=== PATIENT | female | born 1995 | race Caucasian/White ===

== ENCOUNTER 2016-08-25 15:18 | Emergency (ER) | payer MEDICAID, OTHER ==
[2016-08-25 15:33] VITALS: TEMP 97.8
[2016-08-25] MEDS ORDERED: cefTRIAXone SODIUM 1 GM VIAL IM ONE (16:17)
[2016-08-25] MEDS ORDERED: CIPROFLOXACIN 500 MG TAB PO ONE (16:17)
[2016-08-25] MEDS ORDERED: LIDOCAINE 1% 10 ML VIAL INJ ONE (16:20)
--- NOTE | 2016-08-25 16:20 | ED.PDOC ---
History of Present Illness - General Chief Complaint: Problem Stated Complaint: low back discomfort, burning on urination Time Seen by Provider: 08/25/16 15:38 Source: patient Exam Limitations: no limitations - History of Present Illness Initial Comments: the patient is a 21-year-old female presenting to the emergency room secondary to symptoms of urinary frequency and mild dysuria for the last 2 weeks. Over the last 24 hours she started having some mild suprapubic cramping as well as some mild right flank pain. No definite fevers. No nausea or vomiting. No diarrhea. No syncope or near syncope. Activity has been normal otherwise. No vaginal discharge. No pain with ambulation. Timing/Duration: 1 week Severity: moderate Improving Factors: nothing Worsening Factors: nothing Allergies/Adverse Reactions: Allergies NO KNOWN ALLERGY Allergy (Verified 08/25/16 15:29) Home Medications: Ambulatory Orders Ciprofloxacin [Cipro] 250 mg PO BID #14 tab 08/25/16 Review of Systems - Review of Systems Constitutional: States: no symptoms reported EENTM: States: no symptoms reported Respiratory: States: no symptoms reported Cardiology: States: no symptoms reported Gastrointestinal/Abdominal: States: see HPI Genitourinary: States: see HPI Musculoskeletal: States: see HPI Skin: States: no symptoms reported Neurological: States: no symptoms reported All other Systems: No Change from Baseline Past Medical History (General) - Patient Medical History Hx Seizures: No Hx Stroke: No Hx Dementia: No Hx Asthma: No Hx of COPD: No Hx Cardiac Disorders: No Hx Congestive Heart Failure: No Hx Pacemaker: No Hx Hypertension: No Hx Thyroid Disease: No Hx Diabetes: No Hx Gastroesophageal Reflux: No Hx Renal Disease: No Hx Cancer: No Hx of HIV: No Hx Hepatitis C: No Hx MRSA: No - Vaccination History Hx Tetanus, Diphtheria Vaccination: No Hx Influenza Vaccination: No Hx Pneumococcal Vaccination: No - Social History Hx Tobacco Use: No Hx Chewing Tobacco Use: No Hx Alcohol Use: No Hx Substance Use: No Hx Substance Use Treatment: No Hx Depression: No Hx Physical Abuse: No Hx Emotional Abuse: No Hx Suspected Abuse: No - Female History Patient is a Female of Child Bearing Age (10 -59 yrs old): Yes Hx Last Menstrual Period: 06/12/14 Patient : No Expected Date of Delivery:: 11/01/16 Hx Gestational Age: 12 Family Medical History - Family History Mother Family History: No Known Name: Radha Age (years): 36 Living Status: Still Living Hx Family Asthma: No Hx Family Congestive Heart Failure: No Hx Family Hypertension: No Hx Family Stroke: No Hx Cardiac Disease: No Hx Family Diabetes: No Hx Family Cancer: No Physical Exam - Physical Exam General Appearance: Alert, Comfortable, No apparent distress Eye Exam: bilateral normal Ears, Nose, Throat: hearing grossly normal, normal ENT inspection, normal pharynx Neck: non-tender, full range of motion, supple Respiratory: chest non-tender, lungs clear, normal breath sounds, no respiratory distress, no accessory muscle use Cardiovascular/Chest: normal peripheral pulses, regular rate, rhythm, no edema Peripheral Pulses: radial,right: 2+, radial,left: 2+, dorsalis pedis,right: 2+, dorsalis pedis,left: 2+ Gastrointestinal/Abdominal: non tender, soft Rectal Exam: deferred Back Exam: normal inspection, CVA tenderness (R) - mild Extremity: normal range of motion, non-tender, normal inspection, no pedal edema , no calf tenderness, normal capillary refill Neurologic: no motor/sensory deficits, alert, normal mood/affect, oriented x 3 Skin Exam: normal color Comments: Vital Signs - 24 hr 08/25/16 15:31 Temperature 97.8 F Pulse Rate [ 80 Left Radial] Respiratory 18 Rate Blood Pressure 146/99 [Left Arm] O2 Sat by Pulse 97 Oximetry Progress - Progress Progress: 08/25/16 16:20 the patient is a 21-year-old female presenting with cystitis and likely early right pyelonephritis. The patient is given a dose of Rocephin here today and a dose of ciprofloxacin. She'll be placed on ciprofloxacin 250 twice a day for 7 days. She needs to increase her fluid intake. ER warnings are given. She needs to follow-up with her primary care doctor in 5 days for repeat urinalysis. - Results/Orders Results/Orders: Laboratory Tests 08/25/16 15:38 Urine Color Yellow Urine Appearance Cloudy Urine pH 5.5 Ur Specific [place] 1.015 Urine Protein 30 Urine Glucose (UA) Negative Urine Ketones Negative Urine Blood Moderate H Urine Nitrite Negative Urine Bilirubin Negative Urine Urobilinogen 0.2 Ur Leukocyte Esterase Small H Urine RBC 10-20 H Urine WBC 10-20 H Ur Epithelial Cells 1-3 Urine Bacteria 2+ H Departure - Departure Clinical Impression: Pyelonephritis Disposition: Discharge to Home or Self Care Condition: Fair Departure Forms: ED Discharge - Pt. Copy, Patient Portal Self Enrollment Instructions: DI for Urinary Tract Infection (UTI) Diet: regular diet Activity: increase activity as tolerated Prescriptions: Ciprofloxacin [Cipro] 250 mg PO BID #14 tab Home Medications: Ambulatory Orders Ciprofloxacin [Cipro] 250 mg PO BID #14 tab 08/25/16 Additional Instructions: the patient is a 21-year-old female presenting with cystitis and likely early right pyelonephritis. The patient is given a dose of Rocephin here today and a dose of ciprofloxacin. She'll be placed on ciprofloxacin 250 twice a day for 7 days. She needs to increase her fluid intake. ER warnings are given. She needs to follow-up with her primary care doctor in 5 days for repeat urinalysis.
[2016-08-25 16:40] VITALS: BP 109/70; O2SAT 100
== END 2016-08-25 17:00 | disposition home or self-care (01) ==
LOC: ER 15:18
DX: N12 Tubulo-interstitial nephritis, not specified as acute or chronic (principal)
CPT/HCPCS: 81001; 87086; 87088; 87186; J0696

== ENCOUNTER 2016-09-04 20:43 | Emergency (ER) | payer MEDICAID, OTHER ==
[2016-09-04 21:00] VITALS: O2SAT 99
--- NOTE | 2016-09-04 21:43 | ED.PDOC ---
History of Present Illness - General Chief Complaint: Behavioral / Psych Stated Complaint: lightheaded, pressure in chest Time Seen by Provider: 09/04/16 21:38 Source: patient - History of Present Illness Allergies/Adverse Reactions: Allergies NO KNOWN ALLERGY Allergy (Verified 08/25/16 15:29) Home Medications: Ambulatory Orders Ciprofloxacin [Cipro] 250 mg PO BID #14 tab 08/25/16 Past Medical History (General) - Patient Medical History Hx Seizures: No Hx Stroke: No Hx Dementia: No Hx Asthma: No Hx of COPD: No Hx Cardiac Disorders: No Hx Congestive Heart Failure: No Hx Pacemaker: No Hx Hypertension: No Hx Thyroid Disease: No Hx Diabetes: No Hx Gastroesophageal Reflux: No Hx Renal Disease: No Hx Cancer: No Hx of HIV: No Hx Hepatitis C: No Hx MRSA: No Surgical History: no surgical history - Vaccination History Hx Tetanus, Diphtheria Vaccination: No Hx Influenza Vaccination: No Hx Pneumococcal Vaccination: No Immunizations Up to Date: No - Social History Hx Tobacco Use: No Hx Chewing Tobacco Use: No Hx Alcohol Use: Yes - occ Hx Substance Use: No Hx Substance Use Treatment: No Hx Depression: No Hx Physical Abuse: No Hx Emotional Abuse: No Hx Suspected Abuse: No - Female History Hx Last Menstrual Period: 09/03/16 Patient : No Expected Date of Delivery:: 11/01/16 Hx Gestational Age: 12 Family Medical History - Family History Mother Family History: No Known Name: Radha Age (years): 36 Living Status: Still Living Hx Family Asthma: No Hx Family Congestive Heart Failure: No Hx Family Hypertension: No Hx Family Stroke: No Hx Cardiac Disease: No Hx Family Diabetes: No Hx Family Cancer: No Departure - Departure Disposition: Discharge to Home or Self Care Condition: Fair Departure Forms: ED Discharge - Pt. Copy, Patient Portal Self Enrollment Home Medications: Ambulatory Orders Ciprofloxacin [Cipro] 250 mg PO BID #14 tab 08/25/16
--- NOTE | 2016-09-04 21:47 | ED.PDOC ---
History of Present Illness - General Chief Complaint: Behavioral / Psych Stated Complaint: lightheaded, pressure in chest Time Seen by Provider: 09/04/16 21:38 Source: patient, RN notes reviewed, Vital Signs reviewed Exam Limitations: no limitations - History of Present Illness Initial Comments: Patient stated that she started having sharp chest pains 2 days ago then today felt dizzy at work and nauseated.No sob no diaphoresis,pain non radiating Timing/Duration: other - 2 days ago Improving Factors: nothing Worsening Factors: nothing Associated Symptoms: denies symptoms Allergies/Adverse Reactions: Allergies NO KNOWN ALLERGY Allergy (Verified 08/25/16 15:29) Home Medications: Ambulatory Orders Ciprofloxacin [Cipro] 250 mg PO BID #14 tab 08/25/16 Review of Systems - Review of Systems Constitutional: States: no symptoms reported EENTM: States: no symptoms reported Respiratory: States: no symptoms reported Cardiology: States: see HPI Gastrointestinal/Abdominal: States: no symptoms reported Genitourinary: States: no symptoms reported Musculoskeletal: States: no symptoms reported Skin: States: no symptoms reported Neurological: States: no symptoms reported Endocrine: States: no symptoms reported Hematologic/Lymphatic: States: no symptoms reported Past Medical History (General) - Patient Medical History Hx Seizures: No Hx Stroke: No Hx Dementia: No Hx Asthma: No Hx of COPD: No Hx Cardiac Disorders: No Hx Congestive Heart Failure: No Hx Pacemaker: No Hx Hypertension: No Hx Thyroid Disease: No Hx Diabetes: No Hx Gastroesophageal Reflux: No Hx Renal Disease: No Hx Cancer: No Hx of HIV: No Hx Hepatitis C: No Hx MRSA: No Surgical History: no surgical history - Vaccination History Hx Tetanus, Diphtheria Vaccination: No Hx Influenza Vaccination: No Hx Pneumococcal Vaccination: No Immunizations Up to Date: No - Social History Hx Tobacco Use: No Hx Chewing Tobacco Use: No Hx Alcohol Use: Yes - occ Hx Substance Use: No Hx Substance Use Treatment: No Hx Depression: No Hx Physical Abuse: No Hx Emotional Abuse: No Hx Suspected Abuse: No - Activities of Daily Living Patient Lives Alone: No - family - Female History Hx Last Menstrual Period: 09/03/16 Patient : No Expected Date of Delivery:: 11/01/16 Hx Gestational Age: 12 Family Medical History - Family History Mother Family History: No Known Name: Radha Age (years): 36 Living Status: Still Living Hx Family Asthma: No Hx Family Congestive Heart Failure: No Hx Family Hypertension: No Hx Family Stroke: No Hx Cardiac Disease: No Hx Family Diabetes: No Hx Family Cancer: No Physical Exam - Physical Exam General Appearance: Alert, Anxious, Comfortable, No apparent distress, Other Eye Exam: bilateral normal Ears, Nose, Throat: hearing grossly normal, normal ENT inspection, normal pharynx Neck: non-tender, full range of motion, supple Respiratory: chest non-tender, lungs clear, normal breath sounds, no respiratory distress Cardiovascular/Chest: normal peripheral pulses, regular rate, rhythm, no edema, no gallop, no JVD, no murmur Peripheral Pulses: radial,right: 2+, radial,left: 2+ Gastrointestinal/Abdominal: normal bowel sounds, non tender, soft, no organomegaly Back Exam: normal inspection, no CVA tenderness, no vertebral tenderness Extremity: normal range of motion, non-tender, normal inspection Neurologic: no motor/sensory deficits, alert, normal mood/affect Skin Exam: normal color, warm/dry Progress - Results/Orders Results/Orders: 09/04/16 21:15 EKG STAT Laboratory Results WBC 5.8 K/mm3 (4.8-10.8) 09/04/16 21:20 RBC 4.63 M/mm3 (4.20-5.40) 09/04/16 21:20 Hgb 12.1 gm/dL (12.0-16.0) 09/04/16 21:20 Hct 36.6 % (36.0-47.0) 09/04/16 21:20 MCV 79.2 fl (81.0-99.0) L 09/04/16 21:20 MCH 26.2 pg (27.0-31.0) L 09/04/16 21:20 MCHC 33.1 g/dL (33.0-37.0) 09/04/16 21:20 RDW 15.2 % (11.5-14.5) H 09/04/16 21:20 Plt Count 223 K/mm3 (130-400) 09/04/16 21:20 MPV 7.6 fl (7.40-10.4) 09/04/16 21:20 Absolute Neuts (auto) 2.80 K/uL (1.8-6.8) 09/04/16 21:20 Absolute Lymphs (auto) 2.30 K/uL (1.0-3.4) 09/04/16 21:20 Absolute Monos (auto) 0.60 K/uL (0.2-0.8) 09/04/16 21:20 Absolute Eos (auto) 0.10 K/uL (0.0-0.4) 09/04/16 21:20 Absolute Basos (auto) 0.00 K/uL (0.0-0.1) 09/04/16 21:20 Neutrophils % 47.9 % (42.0-78.0) 09/04/16 21:20 Lymphocytes % 39.4 % (20.0-50.0) 09/04/16 21:20 Monocytes % 10.8 % (2.0-9.0) H 09/04/16 21:20 Eosinophils % 1.3 % (1.0-5.0) 09/04/16 21:20 Basophils % 0.6 % (0.0-2.0) 09/04/16 21:20 PT 11.8 SECONDS (9.4-12.5) 09/04/16 21:30 INR 1.040 09/04/16 21:30 PTT (SP) 38.3 SECONDS (25.1-36.5) H 09/04/16 21:30 D-Dimer, Quantitative < 200 ng/mL (0-230) 09/04/16 21:43 Sodium 138 mmol/L (135-145) 09/04/16 21:20 Potassium 3.6 mmol/L (3.6-5.0) 09/04/16 21:20 Chloride 108 mmol/L (101-111) 09/04/16 21:20 Carbon Dioxide 26 mmol/L (21-31) 09/04/16 21:20 Anion Gap 7.6 (12-18) L 09/04/16 21:20 BUN 9 mg/dL (7-18) 09/04/16 21:20 Creatinine 0.59 mg/dL (0.6-1.3) L 09/04/16 21:20 BUN/Creatinine Ratio 15.3 (10-20) 09/04/16 21:20 Random Glucose 95 mg/dL (70-105) 09/04/16 21:20 Serum Osmolality 274.2 mOsm/L (275-295) L 09/04/16 21:20 Calcium 8.9 mg/dL (8.4-10.2) 09/04/16 21:20 Magnesium 1.9 mg/dL (1.8-2.5) 09/04/16 21:30 Total Bilirubin 0.4 mg/dL (0.2-1.0) 09/04/16 21:20 AST 15 IU/L (10-42) 09/04/16 21:20 ALT 13 IU/L (10-60) 09/04/16 21:20 Alkaline Phosphatase 42 IU/L (75-270) L 09/04/16 21:20 Creatine Kinase 62 IU/L (26-140) 09/04/16 21:30 CK-MB (CK-2) 0.8 ng/mL (0.0-4.4) 09/04/16 21:30 CK-MB (CK-2) % Not Reportable 09/04/16 21: Troponin I < 0.02 ng/mL (0.01-0.05) 09/04/16 21:30 Serum Total Protein 7.0 gm/dL (6.4-8.2) 09/04/16 21:20 Albumin 4.2 g/dl (3.2-5.5) 09/04/16 21: Globulin 2.8 gm/dL (2.3-3.5) 09/04/16 21:20 Albumin/Globulin Ratio 1.5 (1.1-1.9) 09/04/16 21:20 Urine Color Yellow (Yellow) 09/04/16 21:28 Urine Appearance Clear (Clear) 09/04/16 21:28 Urine pH 7.5 (4.5-7.8) 09/04/16 21:28 Ur Specific [place] 1.020 (1.005-1.030) 09/04/16 21:28 Urine Protein Negative mg/dL 09/04/16 21: Urine Glucose (UA) Negative mg/dL (Negative) 09/04/16 21:28 Urine Ketones Negative mg/dL (NEGATIVE) 09/04/16 21:28 Urine Blood Small (Negative) H 09/04/16 21:28 Urine Nitrite Negative 09/04/16 21:28 Urine Bilirubin Negative (NEGATIVE) 09/04/16 21:28 Urine Urobilinogen 0.2 mg/dL (0.2-1.0) 09/04/16 21:28 Ur Leukocyte Esterase Negative (Negative) 09/04/16 21:28 Urine RBC 3-5 /hpf H 09/04/16 21:28 Urine WBC 0-1 /hpf 09/04/16 21:28 Ur Epithelial Cells 0-1 /hpf 09/04/16 21:28 Urine Bacteria 0 09/04/16 21:28 Urine HCG, Qual Negative 09/04/16 21:07 Urine Opiates Screen Negative ng/mL (2000) 09/04/16 21:07 Urine Barbiturates Negative ng/mL (200) 09/04/16 21:07 Ur Phencyclidine Scrn Negative ng/mL (25) 09/04/16 21:07 U Amphetamin/Meth Scrn Negative ng/mL (1000) 09/04/16 21:07 U Benzodiazepines Scrn Negative ng/mL (200) 09/04/16 21:07 U Cocaine Metab Screen Negative ng/mL (300) 09/04/16 21:07 U Cannabinoids Screen Negative ng/mL (50) 09/04/16 21:07 - EKG/XRAY/CT EKG: [place], Sinus Comments: sinus arrhythmia XRAY: chest - no acute abnormalities noted Departure - Departure Clinical Impression: Chest pain of unknown etiology, Dizziness, nonspecific Time of Disposition: 22:30 Disposition: Discharge to Home or Self Care Condition: Good Departure Forms: ED Discharge - Pt. Copy, Patient Portal Self Enrollment Instructions: DI for Atypical Chest Pain Home Medications: Ambulatory Orders Ciprofloxacin [Cipro] 250 mg PO BID #14 tab 08/25/16 Additional Instructions: NEED TO SIGN UP WITH PRIMARY MD ;RETURN TO EMERGENCY ROOM NEEDED
--- NOTE | 2016-09-04 22:16 | RAD ---
EXAM: Chest,1 View CLINICAL INDICATION: 21-year-old female with chest pressure. TECHNIQUE: Single view, AP portable chest was obtained. COMPARISON: None. FINDINGS: Unremarkable cardiac and mediastinal silhouette. Heart size is normal. Lungs are clear without focal opacity, pneumothorax or pleural effusions. The visualized bones are within normal limits. IMPRESSION: No acute cardiopulmonary abnormalities. Electronically signed by: May Liz MD 09/04/2016 10:02 PM LEAD NETWORK ARCHITECT
[2016-09-04] MEDS ORDERED: LIDOCAINE VIS-MYLANTA 30 ML UD PO ONE (22:23)
[2016-09-04] MEDS ORDERED: PANTOPRAZOLE SOD SUSP 40 MG PCKT PO ONE (22:23)
[2016-09-04 22:40] VITALS: BP 126/74; TEMP 97.8
--- NOTE | 2016-09-12 13:45 | RAD ---
EXAM: Chest,1 View CLINICAL INDICATION: 21-year-old female with chest pressure. TECHNIQUE: Single view, AP portable chest was obtained. COMPARISON: None. FINDINGS: Unremarkable cardiac and mediastinal silhouette. Heart size is normal. Lungs are clear without focal opacity, pneumothorax or pleural effusions. The visualized bones are within normal limits. IMPRESSION: No acute cardiopulmonary abnormalities. Electronically signed by: May Liz MD 09/04/2016 10:02 PM SUPERVISOR M[employer]
--- NOTE | 2016-09-17 00:12 | RAD ---
EXAM: Chest,1 View CLINICAL INDICATION: 21-year-old female with chest pressure. TECHNIQUE: Single view, AP portable chest was obtained. COMPARISON: None. FINDINGS: Unremarkable cardiac and mediastinal silhouette. Heart size is normal. Lungs are clear without focal opacity, pneumothorax or pleural effusions. The visualized bones are within normal limits. IMPRESSION: No acute cardiopulmonary abnormalities. Electronically signed by: May Liz MD 09/04/2016 10:02 PM SECURITY SYSTEM SALES CONSULTANT
== END 2016-09-04 22:41 | disposition home or self-care (01) ==
LOC: ER 20:43
DX: R07.9 Chest pain, unspecified (principal); R42 Dizziness and giddiness